=== PATIENT | female | born 1970 | race African-American/Black ===

== ENCOUNTER → 2017-06-25 | Day surgery (SDC) | payer OTHER ==
[2017-06-25 10:19] LABS: URINE APPEARANCE CLOUDY; URINE BILIRUBIN NEGATIVE (<2.0 mg/dL); URINE BLOOD 1+ (NEGATIVE); URINE COLOR YELLOW; URINE GLUCOSE (UA) NEGATIVE (NEGATIVE); URINE KETONE NEGATIVE (NEGATIVE); URINE NITRITE NEGATIVE (NEGATIVE); URINE PROTEIN NEGATIVE (NEGATIVE); URINE UROBILINOGEN NEGATIVE mg/dL (0.2-1.0)
[2017-06-25 10:23] LABS: URINE LEUK ESTERASE 3+ (NEGATIVE)
[2017-06-25 10:26] LABS: EPI CELLS MANY /HPF (FEW); URINE BACTERIA MANY /hpf (NONE SEEN); URINE HYALINE CAST 2 /lpf; URINE MUCUS RARE; YEAST FEW
[2017-06-25 10:28] LABS: EOS % 2.7 % (0-4.5); HEMATOCRIT 33.8 % (32.4-45.2); HEMOGLOBIN 10.9 GM/dL (10.7-15.3); LYMPH % 31.5 % (8-40); MCH 25.9 pg (25.7-33.7); MCHC 32.4 g/dl (32.0-36.0); MEAN CELL VOLUME 80.1 fl (80-96); MEAN PLT VOLUME 9.9 fl (7.5-11.1); MONO % 7.2 % (3.8-10.2); NEUT % 57.6 % (42.8-82.8); PLATELET COUNT 153 K/MM3 (134-434); RBC 4.22 M/mm3 (3.60-5.2); RDW 17.1 % (11.6-15.6); WHITE BLOOD COUNT 5.7 K/mm3 (4.0-10.0)
[2017-06-25 10:46] LABS: ALBUMIN 3.2 g/dl (3.4-5.0); MAGNESIUM 1.6 mg/dL (1.8-2.4)
[2017-06-25 11:08] LABS: ALBUMIN 3.1 g/dl (3.4-5.0); ANION GAP 5 (8-16); BLOOD UREA NITROGEN 10 mg/dL (7-18); CALCIUM 8.6 mg/dL (8.5-10.1); CHLORIDE 107 mmol/L (98-107); CO2 26 mmol/L (21-32); CREATININE 0.9 mg/dL (0.55-1.02); GLUCOSE,RANDOM 79 mg/dL (74-106); POTASSIUM 4.2 mmol/L (3.5-5.1); SGOT/AST 6 U/L (15-37); SGPT/ALT 7 U/L (12-78); SODIUM 138 mmol/L (136-145); URIC ACID 4.6 mg/dL (2.6-7.2)
[2017-06-25 11:18] LABS: ALK PHOS 65 U/L (45-117); BILIRUBIN,TOTAL 0.2 mg/dL (0.2-1.0); TOT PROT 7.2 g/dl (6.4-8.2)
[2017-06-25 11:43] LABS: ALK PHOS 68 U/L (45-117); BILIRUBIN,DIRECT < 0.2 mg/dL (0.0-0.2); BILIRUBIN,TOTAL 0.3 mg/dL (0.2-1.0); CHOLESTEROL 179 mg/dL (50-200); GLUCOSE,FASTING 81 mg/dL (70-105); SGOT/AST 10 U/L (15-37); SGPT/ALT 7 U/L (12-78); TOT PROT 7.5 g/dl (6.4-8.2); TRIGLYCERIDES 173 mg/dL (35-160)
[2017-06-25 12:30] LABS: HDL CHOLESTEROL 40 mg/dL (40-60); LDL CHOLESTEROL (ONLY SJRH) 108 mg/dL (5-100)
[2017-06-26 14:17] LABS: C-PEPTIDE 3.5 ng/mL (1.1-4.4)
--- NOTE | 2017-06-26 14:43 | PATH ---
Cytology Non-Gynecological Report Patient Name: RANCHO HANDY [facility]. Rec. #: [id number] /Age/Gender: 1970 (Age: 47) / F Account: [id number] Location: LABORATORY Taken: 06/25/2017 Received: 06/25/2017 Reported: 06/26/2017 Physicians: Wali Noble M.D. Specimen(s) Received LEFT THYROID FNA Clinical History Left Thyroid nodule, 3.65 X 3.01 x 1.46 cm Final Diagnosis THYROID, LEFT, FINE NEEDLE ASPIRATION: SATISFACTORY FOR EVALUATION. BETHESDA CLASS II: BENIGN. CYTOLOGIC FINDINGS ARE CONSISTENT WITH A BENIGN FOLLICULAR NODULE. SMALL FOLLICULAR CELLS, FEW MACROPHAGES, AND COLLOID PRESENT. Electronically Signed Ximena Lerma M.D. Gross Description Received are eight direct smears, four of which are air-dried and Diff-Quik stained, and four of which are alcohol fixed and Pap stained. Also received is 20 ml of bloody formalin from which one cellblock is prepared.
== END | disposition home or self-care (01) ==
LOC: JRADIR 09:14
PROVIDERS: ATTEND Internal Medicine Endocrinology, Diabetes & Metabolism
PROC: 0G9G3ZX Drainage of Left Thyroid Gland Lobe, Percutaneous Approach, Diagnostic (ICD-10-PCS; principal; 2017-06-25)
DX: E04.1 Nontoxic single thyroid nodule (principal)
CPT/HCPCS: 36415; 76942; 80053; 80061; 80076; 81003; 81015; 82306; 82607; 82652; 82947; 83036; 83540; 83721; 83735; 84436; 84439; 84443; 84481; 84550; 84630; 84681; 85025; 88173; 88305-TC

== ENCOUNTER 2018-01-16 13:24 | Observation (INO) | payer OTHER ==
--- NOTE | 2018-01-16 14:41 | PDOC ---
History of Present Illness - General Stated Complaint: PALPITATIONS Time Seen by Provider: 01/16/18 13:56 History Source: Patient Exam Limitations: No Limitations - History of Present Illness Initial Comments: 01/16/18 15:26 Patient is a 47-year-old female with past medical history of systolic heart failure, hypothyroidism, irregular heartbeats, hyperlipidemia, non-insulin- dependent diabetes, presents to the emergency department today for exertional chest pain. Patient states she was walking today when she suddenly felt sharp chest pains in the left side. Patient states that the pain radiated down her left arm. She also admits to palpitations and shortness of breath. She states that when she stopped walking her symptoms improved and the pain resolved. Patient also endorses edema, however she states that she usually has peripheral edema and is taking Lasix at this time. She went to see Dr. Mayes and given her symptoms, he wanted her to come to the emergency department for admission for further cardiac workup. Denies fevers, chills, nausea, vomiting, numbness and tingling to the extremities, weakness to the extremities, shortness of breath at rest. Past History - Travel Traveled outside of the country in the last 30 days: No Close contact w/someone who was outside of country & ill: No - Past Medical History Allergies/Adverse Reactions: Allergies Allergy/AdvReac Type Severity Reaction Status Date / Time lamotrigine [From Lamictal] Allergy Verified 01/16/18 13:34 Home Medications: Ambulatory Orders Aspirin 81 mg PO DAILY 01/16/18 Atorvastatin Ca [Lipitor] 10 mg PO HS 01/16/18 Docusate Sodium [Colace] 100 mg PO DAILY 01/16/18 Ezetimibe [Zetia] 10 mg PO DAILY 01/16/18 Furosemide 40 mg PO ASDIR 01/16/18 Levothyroxine [Synthroid -] 150 mcg PO DAILY 01/16/18 Losartan Potassium 50 mg PO DAILY 01/16/18 Mirabegron [Myrbetriq] 25 mg PO DAILY 01/16/18 Multivitamin [Daily Multiple Vitamin] 1 each PO DAILY 01/16/18 Omeprazole 20 mg PO DAILY 01/16/18 Oxcarbazepine [Trileptal] 300 mg PO BID 01/16/18 Sitagliptin Phos/Metformin HCl [Janumet 50-500 mg Tablet] 1 each PO DAILY Trulicity 01/16/18 Zonisamide [Zonegran] 100 mg PO BID 01/16/18 levETIRAcetam [Keppra -] 750 mg PO BID 01/16/18 Asthma: Yes COPD: No CHF: Yes Diabetes: Yes HTN: Yes Seizures: Yes Thyroid Disease: Yes (hypo) Other medical history: nodules in throat - Surgical History Abdominal Surgery: Yes (hernia repair, kidney stone, gastric sleeve) - Suicide/Smoking/Psychosocial Hx Smoking History: Never smoked Information on smoking cessation initiated: No Hx Alcohol Use: No Drug/Substance Use Hx: No Substance Use Type: None Review of Systems - Review of Systems Able to Perform ROS?: Yes Comments:: 01/16/18 14:43 CONSTITUTIONAL: Absent: fever, chills, diaphoresis, generalized weakness, malaise, loss of appetite HEENT: Absent: rhinorrhea, nasal congestion, throat pain, throat swelling, difficulty swallowing, mouth swelling, ear pain, eye pain, visual Changes CARDIOVASCULAR: Present: chest pain, worse with exertion, palpitations, peripheral edema Absent : loss of consciousness, irregular heart rate RESPIRATORY: Absent: cough, shortness of breath, dyspnea with exertion, orthopnea, wheezing, stridor, hemoptysis GASTROINTESTINAL: Absent: abdominal pain, abdominal distension, nausea, vomiting, diarrhea, constipation, melena, hematochezia GENITOURINARY: Absent: dysuria, frequency, urgency, hesitancy, hematuria, flank pain, genital pain MUSCULOSKELETAL: Absent: myalgia, arthralgia, joint swelling SKIN: Absent: rash, itching, pallor HEMATOLOGIC/IMMUNOLOGIC: Absent: easy bleeding, easy bruising, lymphadenopathy, frequent infections ENDOCRINE: Absent: unexplained weight gain, unexplained weight loss, heat intolerance, cold intolerance NEUROLOGIC: Absent: headache, focal weakness or paresthesias, dizziness, unsteady gait, seizure, mental status changes, bladder or bowel incontinence PSYCHIATRIC: Absent: anxiety, depression, suicidal or homicidal ideation, hallucinations. Is the patient limited Croatian proficient: No *Physical Exam - Vital Signs Last Vital Signs Temp Pulse Resp BP Pulse Ox 98 F 75 19 123/57 L 98 01/16/18 13:27 01/16/18 13:27 01/16/18 13:27 01/16/18 13:27 01/16/18 13:27 - Physical Exam Comments: 01/16/18 14:43 GENERAL: Well developed, well nourished. Awake and alert. No acute distress. HEENT: Normocephalic, atraumatic. PERRLA, EOMI. No conjunctival pallor. Sclera are non- icteric. Moist mucous membranes. Oropharynx is clear. NECK: Supple. Full ROM. No JVD. Carotid pulses 2+ and symmetric, without bruits. No thyromegaly. No lymphadenopathy. CARDIOVASCULAR: Regular rate and rhythm. No murmurs, rubs, or gallops. Distal pulses are 2+ and symmetric. PULMONARY: No evidence of respiratory distress. Course lung sounds at the bases b/l. No wheezing, rales or rhonchi. ABDOMINAL: Soft. Non-tender. Non-distended. No rebound or guarding. No organomegaly. Normoactive bowel sounds. MUSCULOSKELETAL Normal range of motion at all joints. No bony deformities or tenderness. No CVA tenderness. EXTREMITIES: 4+ pitting edema b/l. No cyanosis. No clubbing. No calf tenderness. SKIN: Warm and dry. Normal capillary refill. No rashes. No jaundice. NEUROLOGICAL: Alert, awake, appropriate. Cranial nerves 2-12 intact. No deficits to light touch and temperature in face, upper extremities and lower extremities. No motor deficits in the in face, upper extremities and lower extremities. Normoreflexic in the upper and lower extremities. Normal speech. Toes are down- going bilaterally. Gait is normal without ataxia. PSYCHIATRIC: Cooperative. Good eye contact. Appropriate mood and affect. Heart Score/ECG Review - History History: Moderately suspicious - Electrocardiogram EKG: Normal - Age Age: 45-65 - Risk Factors Risk Factors Heart Score: Yes Hx Hypercholesterolemia, Yes Hx Diabetes, Yes Hx Obesity Based on the list above the patient has:: >/=3 risk factors or Hx atherosclerotic disease - Troponin Troponin: </= normal limit - Score Heart Score - Total: 4 - ECG Intrepretation Rhythm: PVC(s) - [place]: Normal - ST and T Flattened T Waves: No Prolonged Q-T Interval: No - ECG Impressions Normal ECG: Yes Comment:: 01/16/18 18:35 Otherwise normal EKG with frequent PVC's ED Treatment Course - LABORATORY CBC & Chemistry Diagram: 01/16/18 15:11 01/16/18 15:11 Medical Decision Making - Medical Decision Making 01/16/18 15:01 Patient is a 47-year-old female with past medical history of systolic heart failure, hypothyroidism, irregular heartbeats, hyperlipidemia, non-insulin- dependent diabetes, presents to the emergency department today for exertional chest pain. On exam patient with 4+ pitting pedal edema. Heart exam with regular rate and rhythm, no murmurs rubs or gallops heard. Lungs are clear to auscultation bilaterally. Patient states that she currently has no symptoms at this time as her symptoms only come on when she is walking. Unstable angina versus ACS versus CHF exacerbation Labs, EKG, chest x-ray ordered at this time. Reevaluate 01/16/18 16:38 Lab work at this time shows a negative first troponin, BNP of 100 No leukocytosis or electrolyte shifts Chest x-ray is negative for infiltrates, effusions Most likley unstable angina Patient had a cardiac stress test done in 2016 in our facility which showed an EF of 25%. Will page Dr. Rees's service for [place] 01/16/18 16:[address] Rees placed 01/16/18 17:06 No call back, call placed to [place] 01/16/18 17:[address] [facility] Agrees to tele obs given reported symptoms and old Stress test showing 25% EF. *DC/Admit/Observation/Transfer Diagnosis at time of Disposition: Chest pain - Discharge Dispostion Condition at time of disposition: Stable Decision to Admit order: Yes - Referrals Referrals: Dustin Mayes MD [Primary Care Provider] - - Patient Instructions - Post Discharge Activity
[2018-01-16 15:25] LABS: HEMOGLOBIN 10.4 GM/dL (10.7-15.3); LYMPH % 25.6 % (8-40); MCH 26.8 pg (25.7-33.7); MCHC 32.7 g/dl (32.0-36.0); MEAN PLT VOLUME 9.2 fl (7.5-11.1); MONO % 7.6 % (3.8-10.2); NEUT % 63.8 % (42.8-82.8); PLATELET COUNT 147 K/MM3 (134-434); RDW 16.1 % (11.6-15.6); WHITE BLOOD COUNT 6.3 K/mm3 (4.0-10.0)
[2018-01-16 15:27] LABS: INR 0.93 (0.83-1.09)
[2018-01-16 16:02] LABS: ALBUMIN 3.2 g/dl (3.4-5.0); ALK PHOS 76 U/L (45-117); ANION GAP 11 MMOL/L (8-16); BILIRUBIN,TOTAL 0.2 mg/dL (0.2-1); BLOOD UREA NITROGEN 9 mg/dL (7-18); CALCIUM 8.2 mg/dL (8.5-10.1); CHLORIDE 105 mmol/L (98-107); CO2 24 mmol/L (21-32); CREATININE 0.9 mg/dL (0.55-1.3); GLUCOSE,RANDOM 80 mg/dL (74-106); MAGNESIUM 1.7 mg/dL (1.8-2.4); N-TERMINAL BNP 102.1 pg/ml (5-125); POTASSIUM 4.1 mmol/L (3.5-5.1); SGOT/AST 10 U/L (15-37); SGPT/ALT 12 U/L (13-61); SODIUM 139 mmol/L (136-145); TOT PROT 7.2 g/dl (6.4-8.2)
[2018-01-16 16:48] LABS: URINE APPEARANCE SLCLOUDY; URINE BILIRUBIN NEGATIVE (<2.0 mg/dL); URINE COLOR YELLOW; URINE GLUCOSE (UA) NEGATIVE (NEGATIVE); URINE KETONE NEGATIVE (NEGATIVE); URINE LEUK ESTERASE 2+ (NEGATIVE); URINE NITRITE NEGATIVE (NEGATIVE); URINE PROTEIN NEGATIVE (NEGATIVE)
[2018-01-16 17:13] LABS: EPI CELLS MANY /HPF (FEW); URINE BACTERIA RARE /hpf (NONE SEEN); URINE HYALINE CAST 2 /lpf
--- NOTE | 2018-01-16 17:36 | HP ---
Admitting History and Physical - Primary Care Physician PCP: Dustin Mayes - Admission Chief Complaint: Chest pain and palpitation History of Present Illness: 47 yrs old F morbidly obese H/O HTN, T2DM, frequent PVCs, non Ischemic Cardiomyopathy , sHF last EF 25-30 12/24, -ve stress dobutamin ECHO (scanned report) seizure disorders Petit mal and Grand mal last was 1 month ago (F/U in [place]) , patient has no F/U with Cardiology never evaluated for AICD also H/O Well controlled T@DM and Dyslipedemia, chronic LE swelling as per patient off and on palpitation but never syncope or dizziness, base line ET 1-2 blocks denies any PND or orthopnea, toady patient was walking uphill developed palpitation and chest discomfort so visited PMD office so came to Ed for evaluation, on arrival hemodynamically stable, CBc, CMP< Pro BNP, Trop I normal , EKG no acute St T changes occasional PVCs, at the time of examination hemodynamically stable denies anuy complaints. 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 Cardiovascular: Yes: CHF, HTN, Hyperlipdemia Endocrine: Yes: Diabetes Mellitus - Past Surgical History Past Surgical History: Yes: Hernia Repair, Tonsillectomy, Tubal Ligation - Smoking History Smoking history: Never smoked - Alcohol/Substance Use Hx Alcohol Use: No - Social History ADL: Independent Home Medications - Allergies Allergies/Adverse Reactions: Allergies Allergy/AdvReac Type Severity Reaction Status Date / Time lamotrigine [From Lamictal] Allergy Verified 01/16/18 13:34 - Home Medications Home Medications: Ambulatory Orders Aspirin 81 mg PO DAILY 01/16/18 Atorvastatin Ca [Lipitor] 10 mg PO HS 01/16/18 Docusate Sodium [Colace] 100 mg PO DAILY 01/16/18 Ezetimibe [Zetia] 10 mg PO DAILY 01/16/18 Furosemide 40 mg PO ASDIR 01/16/18 Levothyroxine [Synthroid -] 150 mcg PO DAILY 01/16/18 Losartan Potassium 50 mg PO DAILY 01/16/18 Mirabegron [Myrbetriq] 25 mg PO DAILY 01/16/18 Multivitamin [Daily Multiple Vitamin] 1 each PO DAILY 01/16/18 Omeprazole 20 mg PO DAILY 01/16/18 Oxcarbazepine [Trileptal] 300 mg PO BID 01/16/18 Sitagliptin Phos/Metformin HCl [Janumet 50-500 mg Tablet] 1 each PO DAILY Trulicity 01/16/18 Zonisamide [Zonegran] 100 mg PO BID 01/16/18 levETIRAcetam [Keppra -] 750 mg PO BID 01/16/18 Family Disease History - Family Disease History Family History: Unremarkable Review of Systems - Review of Systems Constitutional: denies: Chills, Diaphoresis, Fever Eyes: denies: Blind Spots, Blurred Vision HENT: denies: Difficult Swallowing, Ear Discharge Neck: denies: Decreased ROM, Lumps, Pain on Movement Cardiovascular: reports: Chest Pain, Edema, Palpitations, Shortness of Breath Respiratory: reports: Exercise Intolerance, Orthopnea. denies: Cough, Hemoptysis Gastrointestinal: reports: Abdominal Pain, Diarrhea. denies: Constipation Genitourinary: reports: Burning, Discharge, Dysuria Musculoskeletal: reports: Back Pain, Crepitus, Decreased ROM, Extremity Pain Neurological: denies: Change in LOC, Change in Speech, Confusion Pain Intensity: 0 Physical Examination Vital Signs: Vital Signs Temperature 98 F 01/16/18 13:27 Pulse Rate 75 01/16/18 13:27 Respiratory Rate 19 01/16/18 13:27 Blood Pressure 123/57 L 01/16/18 13:27 O2 Sat by Pulse Oximetry (%) 98 01/16/18 13:27 Constitutional: Yes: No Distress HENT: Yes: Normocephalic, Other (m moist no aanemia) Cardiovascular: Yes: Regular Rate and Rhythm, S1, S2. No: Bruit, JVD, Gallop, Murmur Respiratory: Yes: Regular, CTA Bilaterally Gastrointestinal: Yes: Normal Bowel Sounds, Soft Edema: Yes Edema: RUE: 1+, LLE: 1+ Peripheral Pulses: Left Doralis Pedis: 1+, Right Dorsalis Pedis: 1+ Neurological: Yes: Alert, Oriented, Cran Nerves II-XII Intact ...Motor Strength: WNL, LUE, LLE, RUE, RLE Labs: CBC, BMP 01/16/18 15:11 01/16/18 15:11 CBCD WBC 6.3 K/mm3 (4.0-10.0) 01/16/18 15:11 RBC 3.90 M/mm3 (3.60-5.2) 01/16/18 15:11 Hgb 10.4 GM/dL (10.7-15.3) L 01/16/18 15:11 Hct 32.0 % (32.4-45.2) L 01/16/18 15:11 MCV 82.0 fl (80-96) 01/16/18 15:11 MCHC 32.7 g/dl (32.0-36.0) 01/16/18 15:11 RDW 16.1 % (11.6-15.6) H 01/16/18 15:11 Plt Count 147 K/MM3 (134-434) 01/16/18 15:11 MPV 9.2 fl (7.5-11.1) 01/16/18 15:11 CMP Sodium 139 mmol/L (136-145) 01/16/18 15:11 Potassium 4.1 mmol/L (3.5-5.1) 01/16/18 15:11 Chloride 105 mmol/L (98-107) 01/16/18 15:11 Carbon Dioxide 24 mmol/L (21-32) 01/16/18 15:11 Anion Gap 11 MMOL/L (8-16) 01/16/18 15:11 BUN 9 mg/dL (7-18) 01/16/18 15:11 Creatinine 0.9 mg/dL (0.55-1.3) 01/16/18 15:11 Creat Clearance w eGFR > 60 (>60) 01/16/18 15:11 Calcium 8.2 mg/dL (8.5-10.1) L 01/16/18 15:11 Total Bilirubin 0.2 mg/dL (0.2-1) 01/16/18 15:11 AST 10 U/L (15-37) L 01/16/18 15:11 ALT 12 U/L (13-61) L 01/16/18 15:11 Alkaline Phosphatase 76 U/L (45-117) 01/16/18 15:11 Total Protein 7.2 g/dl (6.4-8.2) 01/16/18 15:11 Albumin 3.2 g/dl (3.4-5.0) L 01/16/18 15:11 Imaging - Results Chest X-ray: Report Reviewed (Normal) EKG: Report Reviewed (HR76 nsr pr160, qrs 106 qtc 436 axis 5 frequent monofocal PVCs) Problem List - Problems (1) Chest pain Assessment/Plan: present with chest pain with exertion associated with palpittaion, EKG and Cardio bimarkers are unremarkable last Stress ECHO (Dobutamine 12/24) was reported negative for ischemia, will cont ASa, lipid lowering agent, Lipid panel TSH HBA!C level, Cardiology consult serial CE and ECHO resume home meds including B Blockers. At present asymptomatic Code(s): R07.9 - CHEST PAIN, UNSPECIFIED (2) Non-ischemic cardiomyopathy Assessment/Plan: Last ECHO in 12/24 low EF 25-30 no ischemic changes most likely non ischemic cardiomyopathy at present BNP is normal CXR no congestive changes f/ u ECHo and Cardiology recommendation. Code(s): I42.8 - OTHER CARDIOMYOPATHIES (3) Acute systolic heart failure, ACC/AHA stage C Assessment/Plan: last ECHO EF 25-30% F/U rpt ECHO at present BNP normal no pulmonary congestion , compensated cont Lasix, add low dose Coreg and Arbs Code(s): I50.21 - ACUTE SYSTOLIC (CONGESTIVE) HEART FAILURE (4) T2DM (type 2 diabetes mellitus) Assessment/Plan: Dibetic Diuet cont Januvia F/U HBAIC cont correction dose insulin. Code(s): E11.9 - TYPE 2 DIABETES MELLITUS WITHOUT COMPLICATIONS (5) HTN (hypertension) Assessment/Plan: Well controlled cont all home meds Code(s): I10 - ESSENTIAL (PRIMARY) HYPERTENSION (6) PVC (premature ventricular contraction) Assessment/Plan: Chronic noted in last ECHO if frequent needs 24 hrs holters to evaluate PVC burden a possible cause for tachycardia induced cardiomyopathy. Code(s): I49.3 - VENTRICULAR PREMATURE DEPOLARIZATION (7) Seizure Assessment/Plan: as per patient she has both petit mal and grand mal seizures last episode was 1 month ago cont home meds and observe Code(s): R56.9 - UNSPECIFIED CONVULSIONS (8) Morbid obesity with BMI of 45.0-49.9, adult Assessment/Plan: Nutrional evaluation as out patient. Code(s): E66.01 - MORBID (SEVERE) OBESITY DUE TO EXCESS CALORIES; Z68.42 - BODY MASS INDEX (BMI) 45.0-49.9, ADULT (9) Hyperchloremia Assessment/Plan: cont statin Code(s): E87.8 - OTH DISORDERS OF ELECTROLYTE AND FLUID BALANCE, NEC (10) Hypothyroid Assessment/Plan: Cont Levothyroxine F./U TSH and ipid Panel Code(s): E03.9 - HYPOTHYROIDISM, UNSPECIFIED
[2018-01-16 20:28] VITALS: BMI 47.4
[2018-01-16 21:31] LABS: CHOLESTEROL 180 mg/dL (50-200); HDL CHOLESTEROL 39 mg/dL (40-60); TRIGLYCERIDES 159 mg/dL (0-150)
[2018-01-16] MEDS ORDERED: levETIRAcetam 500 MG TABLET (FP) PO ONE (21:44)
[2018-01-16] MEDS ORDERED: levETIRAcetam 250 MG TABLET (FP) PO ONE (21:44)
[2018-01-16] MEDS ORDERED: ATORVASTATIN CA 10 MG TABLET (FP) PO SCH (22:00)
[2018-01-16] MEDS ORDERED: levETIRAcetam 500 MG TABLET (FP) PO SCH (22:00)
[2018-01-16] MEDS: CARVEDILOL 3.125 MG TABLET (FP) PO SCH (22:09)
[2018-01-16] MEDS: OXcarbazepine 300 MG TABLET (UD) PO SCH (22:11)
[2018-01-16] MEDS: ZONISAMIDE 100 MG CAPSULE PO SCH (22:11)
[2018-01-16] MEDS: PANTOPRAZOLE 20 MG TABLET (FP) PO SCH (22:18)
[2018-01-17] MEDS: sitaGLIPtin PHOSPHATE 50 MG TABLET PO SCH ×2 (06:33→06:35)
[2018-01-17] MEDS ORDERED: LEVOTHYROXINE NA 150 MCG TABLET PO SCH (07:00)
[2018-01-17] MEDS ORDERED: metFORMIN HCL 500 MG TABLET (FP) PO SCH (07:00)
[2018-01-17 07:30] LABS: BASO % 0.7 % (0-2.0); EOS % 2.4 % (0-4.5); HEMATOCRIT 31.5 % (32.4-45.2); LYMPH % 32.4 % (8-40); MCHC 31.8 g/dl (32.0-36.0); MEAN CELL VOLUME 81.9 fl (80-96); MEAN PLT VOLUME 9.4 fl (7.5-11.1); MONO % 9.1 % (3.8-10.2); NEUT % 55.4 % (42.8-82.8); PLATELET COUNT 144 K/MM3 (134-434); RBC 3.84 M/mm3 (3.60-5.2); RDW 16.3 % (11.6-15.6); WHITE BLOOD COUNT 5.1 K/mm3 (4.0-10.0)
--- NOTE | 2018-01-17 07:44 | EKG ---
Test Reason : Blood Pressure : / mmHG Vent. Rate : 076 BPM Atrial Rate : 076 BPM P-R Int : 160 ms QRS Dur : 106 ms QT Int : 388 ms P-R-T Axes : 067 005 051 degrees QTc Int : 436 ms SINUS RHYTHM WITH FREQUENT PREMATURE VENTRICULAR COMPLEXES NO PREVIOUS ECGS AVAILABLE Confirmed by CAROLYN STANFORD MD ([id number]) on 01/17/2018 7:44:25 AM Referred By: Confirmed By:CAROLYN STANFORD MD
[2018-01-17 08:45] LABS: ALK PHOS 71 U/L (45-117); ANION GAP 9 MMOL/L (8-16); BILIRUBIN,TOTAL 0.3 mg/dL (0.2-1); BLOOD UREA NITROGEN 7 mg/dL (7-18); CALCIUM 8.3 mg/dL (8.5-10.1); CHLORIDE 106 mmol/L (98-107); CO2 26 mmol/L (21-32); CREATININE 0.8 mg/dL (0.55-1.3); GLUCOSE,RANDOM 82 mg/dL (74-106); POTASSIUM 4.4 mmol/L (3.5-5.1); SGOT/AST 11 U/L (15-37); SGPT/ALT 10 U/L (13-61); SODIUM 141 mmol/L (136-145)
[2018-01-17] MEDS ORDERED: levETIRAcetam 500 MG TABLET (FP) PO ONE (08:52)
[2018-01-17] MEDS ORDERED: levETIRAcetam 250 MG TABLET (FP) PO ONE (08:52)
[2018-01-17] MEDS: PANTOPRAZOLE 20 MG TABLET (FP) PO SCH (09:29)
[2018-01-17] MEDS: CARVEDILOL 3.125 MG TABLET (FP) PO SCH (09:29)
[2018-01-17] MEDS: OXcarbazepine 300 MG TABLET (UD) PO SCH (09:30)
[2018-01-17] MEDS ORDERED: ASPIRIN 81 MG CHEWABLE TABLETS PO SCH (10:00)
[2018-01-17] MEDS ORDERED: FUROSEMIDE 40 MG TABLET (FP) PO SCH (10:00)
[2018-01-17] MEDS ORDERED: DOCUSATE SODIUM 100 MG CAPSULE (FP) PO SCH (10:00)
[2018-01-17] MEDS ORDERED: PATIENT'S OWN MEDICATION (NON-FORMULARY) (Sitagliptin Phos/Metformin Hcl [Janumet 50-500 M PO SCH (10:00)
[2018-01-17] MEDS ORDERED: MULTIVITAMINS (DAILY MVI) TABLET (FP) PO SCH (10:00)
[2018-01-17] MEDS ORDERED: PATIENT'S OWN MEDICATION (NON-FORMULARY) (Mirabegron [Myrbetriq] 25 MG) PO SCH (10:00)
[2018-01-17] MEDS ORDERED: LOSARTAN POTASSIUM 50 MG TABLET (FP) PO SCH (10:00)
[2018-01-17] MEDS ORDERED: EZETIMIBE 10 MG TABLET (FP) PO SCH (10:00)
--- NOTE | 2018-01-17 10:03 | CON.CARD ---
Consult Consult Specialty:: Cardiology Referred by:: Emergency Medicine Reason for Consultation:: Cardiomyopathy - History of Present Illness Chief Complaint: Sharp chest pain, palpitations and BHAKTA History of Present Illness: 47 yrs old F morbidly obese H/O HTN cardiomyopathy, T2DM, frequent PVCs, non Ischemic Cardiomyopathy LVEF 25-30 12/24, -ve stress dobutamin ECHO (scanned report), hyperlipidemia, seizure disorders Petit mal and Grand mal, chronic LE swelling, presents for sharp chest pain, palpitation and dyspnea on exertion while climbing incline, referred for evaluation, exertional symptoms since improved. She denies near or true syncope, orthopnea, PND, worsening LE edema. She was previously morbidly obese >500 lbs and reports significant weight loss with improvement in Ha1c and lipid levels. 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 Cardio/Vascular: Yes: CHF, HTN, Hyperlipdemia ...: No Endocrine: Yes: Diabetes Mellitus - Past Surgical History Past Surgical History: Yes: Hernia Repair, Tonsillectomy, Tubal Ligation - Alcohol/Substance Use Hx Alcohol Use: No - Smoking History Smoking history: Never smoked Have you smoked in the past 12 months: No - Social History ADL: Independent Home Medications - Allergies Allergies/Adverse Reactions: Allergies Allergy/AdvReac Type Severity Reaction Status Date / Time lamotrigine [From Lamictal] Allergy Verified 01/16/18 13:34 - Home Medications Home Medications: Ambulatory Orders Aspirin 81 mg PO DAILY 01/16/18 Atorvastatin Ca [Lipitor] 10 mg PO HS 01/16/18 Docusate Sodium [Colace] 100 mg PO DAILY 01/16/18 Ezetimibe [Zetia] 10 mg PO DAILY 01/16/18 Furosemide 40 mg PO ASDIR 01/16/18 Levothyroxine [Synthroid -] 150 mcg PO DAILY 01/16/18 Losartan Potassium 50 mg PO DAILY 01/16/18 Mirabegron [Myrbetriq] 25 mg PO DAILY 01/16/18 Multivitamin [Daily Multiple Vitamin] 1 each PO DAILY 01/16/18 Omeprazole 20 mg PO DAILY 01/16/18 Oxcarbazepine [Trileptal] 300 mg PO BID 01/16/18 Sitagliptin Phos/Metformin HCl [Janumet 50-500 mg Tablet] 1 each PO DAILY Trulicity 01/16/18 Zonisamide [Zonegran] 100 mg PO BID 01/16/18 levETIRAcetam [Keppra -] 750 mg PO BID 01/16/18 Review of Systems - Review of Systems Cardiovascular: reports: Chest Pain, Palpitations Respiratory: reports: Exercise Intolerance, SOB on Exertion Vital Signs: Vital Signs Temperature 97.6 F 01/17/18 05:44 Pulse Rate 78 01/17/18 05:44 Respiratory Rate 20 01/17/18 05:44 Blood Pressure 123/71 01/17/18 05:44 O2 Sat by Pulse Oximetry (%) 100 01/16/18 20:36 Constitutional: Yes: No Distress, Calm Neck: Yes: Supple Respiratory: Yes: Regular, Diminished, On Nasal O2 Gastrointestinal: Yes: Normal Bowel Sounds, Soft, Abdomen, Obese Cardiovascular: Yes: Regular Rate and Rhythm, Other (with ectopics) JVD: No Carotid Bruit: No Heart Sounds: Yes: S1, S2 Murmur: Yes: Systolic Murmur, Grade 1 Edema: Yes Edema: LLE: Trace, RLE: Trace - Other Data Labs, Other Data: CBC, BMP 01/17/18 06:15 01/17/18 06:15 INR, PTT INR 0.93 (0.83-1.09) 01/16/18 15:11 Troponin, BNP 01/16/18 01/16/18 01/17/18 15:10 15:11 00:05 Troponin I Cancelled < 0.02 < 0.01 B-Natriuretic Peptide 102.1 Troponin, BNP 01/16/18 01/16/18 01/17/18 15:10 15:11 00:05 Troponin I Cancelled < 0.02 < 0.01 B-Natriuretic Peptide 102.1 NSR @ 76 frequent PVC Echo: Report Reviewed Ejection Fraction %: LVEF < 40 % (01/17/2018 Echo: Moderate-severe decreased LVEF 40%, possible noncompaction) Imaging - Results Chest X-ray: Report Reviewed (NAD) Problem List - Problems (1) Acute systolic heart failure, ACC/AHA stage C Code(s): I50.21 - ACUTE SYSTOLIC (CONGESTIVE) HEART FAILURE (2) Chest pain Code(s): R07.9 - CHEST PAIN, UNSPECIFIED Qualifiers: Chest pain type: precordial pain Qualified Code(s): R07.2 - Precordial pain (3) HTN (hypertension) Code(s): I10 - ESSENTIAL (PRIMARY) HYPERTENSION Qualifiers: Hypertension type: essential hypertension Qualified Code(s): I10 - Essential (primary) hypertension (4) Hypothyroid Code(s): E03.9 - HYPOTHYROIDISM, UNSPECIFIED Qualifiers: Hypothyroidism type: unspecified Qualified Code(s): E03.9 - Hypothyroidism , unspecified (5) Morbid obesity with BMI of 45.0-49.9, adult Code(s): E66.01 - MORBID (SEVERE) OBESITY DUE TO EXCESS CALORIES; Z68.42 - BODY MASS INDEX (BMI) 45.0-49.9, ADULT (6) Non-ischemic cardiomyopathy Code(s): I42.8 - OTHER CARDIOMYOPATHIES (7) PVC (premature ventricular contraction) Code(s): I49.3 - VENTRICULAR PREMATURE DEPOLARIZATION (8) T2DM (type 2 diabetes mellitus) Code(s): E11.9 - TYPE 2 DIABETES MELLITUS WITHOUT COMPLICATIONS Qualifiers: Diabetes mellitus termite inspector insulin use: without termite inspector use (9) Palpitations Code(s): R00.2 - PALPITATIONS Assessment/Plan Echocardiogram: 01/17/2018 Moderate-severe LV fxn LVEF 40%, 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 Chest pain, BHAKTA referable to chronic systolic heart failure 2. Palpitations referable to PVC 3. 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 Type 2 DM 5. HTN/HCVD 6. Seizure d/o 7. Morbid obesity, previous OSAS/OHS 8. Hyperlipidemia not at goal control 9. Hypothyroidism P:1. Ruled out for [place] 2. Continue ASA 81 qd, increase Lipitor 20 qhs, Zetia 10 qd, losartan 50 qd, increase Toprol XL 50 qd 3. Will change Lasix 40 qd to Aldactone 25 qd as outpatient with check renal fxn and K 4. Consider Jardiance 10 qd per endocrinology as outpatient to decrease cardiovascular events 5. Patient may be d/dorie with f/u in office , consider cardiac MRI to evaluate for noncompaction cardiomyopathy
--- NOTE | 2018-01-17 10:07 | ECHO ---
Name: RANCHO HANDY Exam:Adult Echocardiogram Study Date: 01/17/2018 08:11 AM Age: 47 yrs Reason For Study: SYNCOPE Height: 67 in Weight: 312 lb BSA: 2.4 m2 MMode/2D Measurements & Calculations IVSd: 0.85 cm Ao root diam: 3.2 cm LVIDd: 6.3 cm LA dimension: 4.2 cm LVIDs: 4.9 cm ACS: 1.7 cm LVPWd: 0.95 cm IVSs: 0.97 cm LVPWs: 1.4 cm EDV(Teich): 202.0 ml ESV(Teich): 111.5 ml Doppler Measurements & Calculations MV E max jaxon: 117.5 cm/sec Ao V2 max: 156.9 cm/sec MV A max jaxon: 63.2 cm/sec Ao max P.8 mmHg MV E/A: 1.9 Ao V2 mean: 111.9 cm/sec Ao mean P.7 mmHg Ao V2 VTI: 32.7 cm MR max jaxon: 444.2 cm/sec TR max jaxon: 220.6 cm/sec MR max P.0 mmHg TR max P.5 mmHg RVSP(TR): 29.5 mmHg Med Peak E' Jaxon: 7.0 cm/sec RAP systole: 10.0 mmHg Med E/e': 16.7 Lat Peak E' Jaxon: 11.6 cm/sec Lat E/e': 10.1 Left Ventricle In some views, the left ventricle appears hypertrabeculated raising the possibility of non-compaction . Suggest cardiac MRI as outpatient. The left ventricle is moderately dilated. Left ventricular systolic functi on is moderate to severely reduced. Ejection Fraction = 40%. There is moderate to severe global hypokinesis of the left ventricle. Right Ventricle The right ventricle is normal in size and function. Atria The left atrium is mildly dilated. Mitral Valve The mitral valve is normal in structure and function. There is no mitral valve stenosis. There is mil d mitral regurgitation. Tricuspid Valve The tricuspid valve is normal in structure and function. There is mild tricuspid regurgitation. Aortic Valve The aortic valve opens well. No hemodynamically significant valvular aortic stenosis. No aortic regur gitation is present. Pulmonic Valve The pulmonic valve is not well seen, but is grossly normal. There is no pulmonic valvular stenosis. T here is no pulmonic valvular regurgitation. Great Vessels The aortic root is normal size. Pericardium/Pleura There is no pericardial effusion. Interpretation Summary There is moderate to severe global hypokinesis of the left ventricle. Left ventricular systolic function is moderate to severely reduced. Ejection Fraction = 40%. In some views, the left ventricle appears hypertrabeculated raising the possibility of non-compaction . Suggest cardiac MRI as outpatient. The left atrium is mildly dilated. There is mild mitral regurgitation. MD Rick Wheat 01/17/2018 10:06 AM
--- NOTE | 2018-01-17 11:29 | PN ---
Progress Note, Physician Chief Complaint: chest pain SOB History of Present Illness: NAD Seen by cardiology labs unremarkable Echo LVEF-40%, moderate-severe left ventricle hypokinesis, LV systolic fxn mod- sev reduced On tele furosemide discontinued Metoprolol increased to 50 mg po daily Spironolactone 25 mg po daily added - Current Medication List Current Medications: Active Medications Aspirin (Asa -) 81 mg PO DAILY [facility] Last Admin: 01/17/18 09:29 Dose: 81 mg Atorvastatin Calcium (Lipitor -) 10 mg PO HS [facility] Last Admin: 01/16/18 22:10 Dose: Not Given Carvedilol (Coreg -) 3.125 mg PO BID [facility] Last Admin: 01/17/18 09:29 Dose: 3.125 mg Docusate Sodium (Colace -) 100 mg PO DAILY [facility] Last Admin: 01/17/18 09:30 Dose: Not Given Ezetimibe (Zetia -) 10 mg PO DAILY [facility] Last Admin: 01/17/18 09:29 Dose: 10 mg Furosemide (Lasix -) 40 mg PO DAILY [facility] Last Admin: 01/17/18 09:30 Dose: Not Given Levetiracetam 250 mg/ (Levetiracetam 500 mg) 750 mg PO BID [facility] Last Admin: 01/17/18 09:29 Dose: 750 mg Levothyroxine Sodium (Synthroid -) 150 mcg PO DAILY@0700 [facility] Last Admin: 01/17/18 06:33 Dose: 150 mcg Losartan Potassium (Cozaar -) 50 mg PO DAILY [facility] Last Admin: 01/17/18 09:30 Dose: 50 mg Multivitamins/Minerals/Vitamin C (Tab-A-Vit -) 1 tab PO DAILY [facility] Last Admin: 01/17/18 09:29 Dose: 1 tab Non-Formulary Medication (Mirabegron [Myrbetriq]) 25 mg PO DAILY [facility] Oxcarbazepine (Trileptal -) 300 mg PO BID [facility] Last Admin: 01/17/18 09:30 Dose: Not Given Pantoprazole Sodium (Protonix -) 20 mg PO DAILY [facility] Last Admin: 01/17/18 09:29 Dose: 20 mg Sitagliptin Phosphate (Januvia -) 50 mg PO DAILY@0700 [facility] Last Admin: 01/17/18 06:35 Dose: Not Given Zonisamide (Zonegran -) 100 mg PO BID [facility] Last Admin: 01/16/18 22:11 Dose: 100 mg - Objective Vital Signs: Vital Signs Temperature 97.6 F 01/17/18 05:44 Pulse Rate 78 01/17/18 05:44 Respiratory Rate 20 01/17/18 05:44 Blood Pressure 123/71 01/17/18 05:44 O2 Sat by Pulse Oximetry (%) 100 01/16/18 20:36 Constitutional: Yes: Well Nourished, No Distress, Calm, Obese Cardiovascular: Yes: Regular Rate and Rhythm Respiratory: Yes: Regular Gastrointestinal: Yes: Normal Bowel Sounds, Soft, Abdomen, Obese Musculoskeletal: Yes: WNL Extremities: Yes: WNL Edema: No Peripheral Pulses WNL: Yes Neurological: Yes: Alert, Oriented Psychiatric: Yes: Alert, Oriented Labs: CBC, BMP 01/17/18 06:15 01/17/18 06:15 INR, PTT INR 0.93 (0.83-1.09) 01/16/18 15:11 Problem List - Problems (1) Acute systolic heart failure, ACC/AHA stage C Assessment/Plan: Continue ASA 81 qd -increase Lipitor 20 qhs -Zetia 10 qd -losartan 50 qd -increase Toprol XL 50 qd -F/U with cardiology outpatient Code(s): I50.21 - ACUTE SYSTOLIC (CONGESTIVE) HEART FAILURE (2) Chest pain Assessment/Plan: -ruled out for MS -Troponins and BNP unremarkable -Seen by Cardiology -No events on tele Code(s): R07.9 - CHEST PAIN, UNSPECIFIED Qualifiers: Chest pain type: precordial pain Qualified Code(s): R07.2 - Precordial pain (3) Morbid obesity with BMI of 45.0-49.9, adult Code(s): E66.01 - MORBID (SEVERE) OBESITY DUE TO EXCESS CALORIES; Z68.42 - BODY MASS INDEX (BMI) 45.0-49.9, ADULT (4) T2DM (type 2 diabetes mellitus) Assessment/Plan: -A1c at 5.6 -Encouraged to continue lifestyle modification -July d/c Sukumart and trvinicio -Consider Jardiance if needed -F/U with PMD/Endocrinology outpatient Code(s): E11.9 - TYPE 2 DIABETES MELLITUS WITHOUT COMPLICATIONS Qualifiers: 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
[2018-01-17] MEDS ORDERED: ATORVASTATIN CA 20 MG TABLET (FP) PO SCH (12:01)
[2018-01-17] MEDS ORDERED: SPIRONOLACTONE 25 MG TABLET (FP) PO SCH (12:45)
[2018-01-17] MEDS: ZONISAMIDE 100 MG CAPSULE PO SCH (13:03)
[2018-01-17 13:17] VITALS: BP 109/73; PULSE 70; TEMP 98.2
== END 2018-01-17 14:29 | disposition home or self-care (01) ==
LOC: JER 13:24 → JERBED 17:30 → J4W 19:30
PROVIDERS: ADMIT Internal Medicine; ATTEND Internal Medicine
DX: I11.0 Hypertensive heart disease with heart failure (principal); I50.21 Acute systolic (congestive) heart failure; R07.89 Other chest pain; I49.9 Cardiac arrhythmia, unspecified; I49.3 Ventricular premature depolarization; I42.8 Other cardiomyopathies; E78.5 Hyperlipidemia, unspecified; E11.9 Type 2 diabetes mellitus without complications; E03.9 Hypothyroidism, unspecified; E87.8 Other disorders of electrolyte and fluid balance, not elsewhere classified; J45.909 Unspecified asthma, uncomplicated; G40.909 Epilepsy, unspecified, not intractable, without status epilepticus; R00.2 Palpitations; E66.01 Morbid (severe) obesity due to excess calories; Z68.42 Body mass index [BMI] 45.0-49.9, adult; Z79.82 Long term (current) use of aspirin; Z79.84 Long term (current) use of oral hypoglycemic drugs
CPT/HCPCS: 36415; 71045-TC-FY; 80053; 80061; 81003; 81015; 82550; 82553; 82962; 83036; 83721; 83735; 83880; 84443; 84484; 85025; 85610; 93005; 93010; 93306-TC; 99284-25; G0378

== ENCOUNTER 2018-02-13 05:26 | Inpatient (IN) | payer OTHER ==
[2018-02-11 16:12] VITALS: BMI 49.3
--- NOTE | 2018-02-13 03:05 | HP ---
History & Physical Update - History History: No Change - Physical Physical: No Change - Assessment Assessment: No Change - Plan Plan: No Change (No change in HP on 02/11/18)
[~2018-02-13 05:26] MED LIST: ACETAMINOPHEN 325 MG TABLET (FP) PO PRN
[2018-02-13] MEDS ORDERED: MIDAZOLAM HCL 2 MG/2 ML SINGLE DOSE VIAL ONE ×4 (09:31→10:51)
[2018-02-13] MEDS ORDERED: DEXAMETHASONE SOD PHOSPHATE 4 MG/1 ML VIAL ONE (09:55)
[2018-02-13] MEDS ORDERED: SUCCINYLCHOLINE CHLORIDE 200 MG/10 ML VIAL ONE (09:56)
[2018-02-13] MEDS ORDERED: ROCURONIUM BROMIDE 50 MG/5 ML VIAL ONE (09:56)
[2018-02-13] MEDS ORDERED: PROPOFOL 20 ML ONE (09:57)
[2018-02-13] MEDS ORDERED: NEOSTIGMINE METHYLSULFATE 0.5 MG/1 ML - 10 ML MDV ONE (10:22)
[2018-02-13] MEDS ORDERED: ONDANSETRON 4 MG/2 ML VIAL ONE (10:26)
--- NOTE | 2018-02-13 10:51 | OP ---
Operative Note - Note: Operative Date: 02/13/18 Pre-Operative Diagnosis: Endometrial polyp. Abnormal Uterine bleeding Operation: Hysteroscopic Myomectomy. Suction DC Findings: large endometrial polyp Post-Operative Diagnosis: Same as Pre-op Surgeon: Cynthia Avelar Anesthesiologist/[employer] SALESMAN: Zeyad Recinos Anesthesia: General Estimated Blood Loss (mls): 40 Operative Report Dictated: Yes
[2018-02-13] MEDS ORDERED: ONDANSETRON 4 MG/2 ML VIAL IVPUSH PRN (11:06)
[2018-02-13] MEDS ORDERED: MIDAZOLAM HCL 2 MG/2 ML SINGLE DOSE VIAL IVPUSH ONE (11:07)
[2018-02-13] MEDS ORDERED: LACTATED RINGERS SOLUTION 1,000 ML IV SCH (11:15)
[2018-02-13] MEDS ORDERED: levETIRAcetam 500 MG/5 ML INJECTION VIAL IVPB STA (11:21)
[2018-02-13] MEDS ORDERED: LORazepam 2 MG/ML SDV VIAL IVPUSH PRN (11:25)
--- NOTE | 2018-02-13 14:06 | CON.NEURO ---
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 Cardio/Vascular: Yes: CHF, HTN, Hyperlipdemia ...LMP: 01/28/18 ...LMP Comment: heavy x 2 weeks Endocrine: Yes: Diabetes Mellitus - Past Surgical History Past Surgical History: Yes: Hernia Repair, Tonsillectomy, Tubal Ligation - Alcohol/Substance Use Hx Alcohol Use: No - Smoking History Smoking history: Never smoked Have you smoked in the past 12 months: No - Social History ADL: Independent Home Medications - Allergies Allergies/Adverse Reactions: Allergies Allergy/AdvReac Type Severity Reaction Status Date / Time celecoxib [From Celebrex] Allergy Verified 02/13/18 09:13 lamotrigine [From Lamictal] Allergy Verified 02/13/18 09:13 metoclopramide Allergy Verified 02/13/18 09:13 [From Metozolv ODT] tramadol Allergy Verified 02/13/18 09:13 - Home Medications Home Medications: Ambulatory Orders Aspirin 81 mg PO DAILY 01/16/18 Ezetimibe [Zetia] 10 mg PO DAILY 01/16/18 Levothyroxine [Synthroid -] 150 mcg PO DAILY 01/16/18 Losartan Potassium 50 mg PO DAILY 01/16/18 Mirabegron [Myrbetriq] 25 mg PO DAILY 01/16/18 Multivitamin [Daily Multiple Vitamin] 1 each PO DAILY 01/16/18 Zonisamide [Zonegran] 100 mg PO BID 01/16/18 levETIRAcetam [Keppra -] 750 mg PO BID 01/16/18 Metoprolol Succinate [Toprol XL -] 50 mg PO DAILY #30 tab.sr.24h 01/17/18 Oxcarbazepine [Trileptal] 300 mg PO HS #30 tab 01/17/18 Spironolactone [Aldactone -] 25 mg PO DAILY #30 tablet 01/17/18 Atorvastatin Ca [Lipitor] 10 mg PO HS 02/11/18 Budesonide/Formeterol Fumarate [SYMBICORT 160/4.5mcg -] 1 inh IH PRN 02/11/18 Cyanocobalamin Vit B-12 Inj. [Redisol] 1,000 mcg IM WEEKLY 02/11/18 Ergocalciferol (Vitamin D2) [Vitamin D2] 50,000 unit PO WEEKLY 02/11/18 Physical Exam-Neuro Vital Signs: Vital Signs Temperature 97.4 F L 02/13/18 10:47 Pulse Rate 61 02/13/18 13:00 Respiratory Rate 18 02/13/18 13:00 Blood Pressure 109/65 02/13/18 13:00 O2 Sat by Pulse Oximetry (%) 100 02/13/18 13:00 Assessment/Plan cc Breakthrough seizure HPI 47 year old female history of DM,HTN, Non ischemic cardiomyopathy , CHF. She has history of epilepsy , and on keppra 750 mg bid and zonegran 200 mg po qhs. Patient has fibroid surgery done , endoscopically. She took her aed this morning. she did have one small seizure ( as patient describes as petit mal) . She has eye twitching and face twisting and no generalized tonic clonic activity , she was given extra kepra of 1500 mg iv once. patient is now woke up. As per patient she has several video - eeg monitoring done and but never had seizure detected before. She feels better, she did have brain imaging and eeg done before. As per patient brain imaging were normal before. She denies any fever , headhace . She did not have any tongue bite or incontinence. PMH as above Past Surgical History: Yes: Hernia Repair, Tonsillectomy, Tubal Ligation Personal History Never smoked - Allergies Allergies/Adverse Reactions: Allergies Allergy/AdvReac Type Severity Reaction Status Date / Time lamotrigine [From Lamictal] Allergy Verified 01/16/18 13:34 Home Medications: Aspirin 81 mg PO DAILY 01/16/18 Atorvastatin Ca [Lipitor] 10 mg PO HS 01/16/18 Docusate Sodium [Colace] 100 mg PO DAILY 01/16/18 Ezetimibe [Zetia] 10 mg PO DAILY 01/16/18 Furosemide 40 mg PO ASDIR 01/16/18 Levothyroxine [Synthroid -] 150 mcg PO DAILY 01/16/18 Losartan Potassium 50 mg PO DAILY 01/16/18 Mirabegron [Myrbetriq] 25 mg PO DAILY 01/16/18 Multivitamin [Daily Multiple Vitamin] 1 each PO DAILY 01/16/18 Omeprazole 20 mg PO DAILY 01/16/18 Oxcarbazepine [Trileptal] 300 mg PO BID 01/16/18 Sitagliptin Phos/Metformin HCl [Janumet 50-500 mg Tablet] 1 each PO DAILY Trulicity 01/16/18 Zonisamide [Zonegran] 100 mg PO BID 01/16/18 levETIRAcetam [Keppra -] 750 mg PO BID 01/16/18 ROS , family history reviewed in chart NEUROLOGICAL EXAMINATION alert oriented x 3, speech is normal, no neck stiffness EOMI, pupils reactive, no face asymmetry moving all extremity 5/5 sensation is normal No brain imaging available Assessment/pLAN 48 year old female history of epilepsy, came for removal of uterine fibroid ( endoscopically) , during post op she had a breakthrough seizure and was given iv versed, and she was given extra keppra 1500 mg iv once Now she is back to normal self and wishes to go home Plan: given she has extensive work up in past , there is no need for imaging or eeg at thsi time. She was given extra keppra. She is advice to take keppra 750 mg po tid, and follow up with neurologist - I provided her my office no, interim, if she has any question, she can call my office. - electrolyte can be checked and she can be discharged home. Thanking you so much Herb
[2018-02-13 14:41] LABS: ALBUMIN 2.9 g/dl (3.4-5.0); ALK PHOS 79 U/L (45-117); ANION GAP 6 MMOL/L (8-16); BILIRUBIN,TOTAL 0.2 mg/dL (0.2-1); BLOOD UREA NITROGEN 9 mg/dL (7-18); CALCIUM 8.2 mg/dL (8.5-10.1); CHLORIDE 107 mmol/L (98-107); CO2 26 mmol/L (21-32); CREATININE 0.7 mg/dL (0.55-1.3); GLUCOSE,RANDOM 117 mg/dL (74-106); MAGNESIUM 1.7 mg/dL (1.8-2.4); POTASSIUM 4.5 mmol/L (3.5-5.1); SGOT/AST 16 U/L (15-37); SGPT/ALT 12 U/L (13-61); SODIUM 139 mmol/L (136-145); TOT PROT 6.9 g/dl (6.4-8.2)
[2018-02-13 15:05] VITALS: TEMP 97.5
[2018-02-13 16:50] VITALS: PULSE 84
[2018-02-13 16:52] VITALS: BP 112/66
--- NOTE | 2018-02-14 16:42 | PATH ---
Surgical Pathology Report Patient Name: RANCHO HANDY [facility]. Rec. #: [id number] /Age/Gender: 1970 (Age: 48) / F Account: [id number] Location: [facility] Taken: 02/13/2018 Received: 02/13/2018 Reported: 02/14/2018 Physicians: Cynthia Avelar M.D. Specimen(s) Received UTERINE CONTENTS Clinical History Endometrial polyp Final Diagnosis CONTENTS OF UTERUS, SUCTION DILATION AND CURETTAGE: FRAGMENTS OF ENDOMETRIAL POLYP AND SCANT CERVICAL TISSUE. Electronically Signed Ximena Lerma M.D. Gross Description Received in formalin labeled "contents of uterus," is a 3 g, 3.3 x 3.0 x 0.3 cm aggregate of lord-pink, firm to rubbery portions of tissue admixed with blood clot. The formalin is filtered and the specimen is entirely submitted in 2 cassettes. /02/13/2018 saudi02/13/2018
== END 2018-02-13 12:30 | disposition home or self-care (01) | DRG 744 ==
LOC: JASU-SURG 05:26 → JSAMEDAYSX 11:18
PROVIDERS: ADMIT Obstetrics & Gynecology; ATTEND Obstetrics & Gynecology
PROC: 0UB98ZX Excision of Uterus, Via Natural or Artificial Opening Endoscopic, Diagnostic (ICD-10-PCS; principal; 2018-02-13 10:30)
PROC: 0UDB8ZX Extraction of Endometrium, Via Natural or Artificial Opening Endoscopic, Diagnostic (ICD-10-PCS; 2018-02-13 10:30)
DX: N93.8 Other specified abnormal uterine and vaginal bleeding (principal); I42.8 Other cardiomyopathies; G97.82 Other postprocedural complications and disorders of nervous system; Z68.42 Body mass index [BMI] 45.0-49.9, adult; N84.0 Polyp of corpus uteri; E11.9 Type 2 diabetes mellitus without complications; I50.9 Heart failure, unspecified; I10 Essential (primary) hypertension; G40.909 Epilepsy, unspecified, not intractable, without status epilepticus; E78.5 Hyperlipidemia, unspecified; E66.01 Morbid (severe) obesity due to excess calories
CPT/HCPCS: 36415; 80053; 83735; 84702; 85025; 86850; 86900; 86901; 88305-TC; 94760

== ENCOUNTER 2022-12-24 15:30 | Emergency (ER) | payer OTHER ==
[2022-12-24 16:47] VITALS: RESP 18; TEMP 98.2; BMI 51.7
[2022-12-24] MEDS ORDERED: DEXAMETHASONE SOD PHOSPHATE 10 MG/1 ML VIAL IVPUSH ONE (16:48)
[2022-12-24 17:09] LABS: BASO % 0.7 % (0-2.0); EOS % 1.7 % (0-4.5); HEMATOCRIT 36.3 % (32.4-45.2); HEMOGLOBIN 11.8 GM/dL (10.7-15.3); LYMPH % 32.2 % (8-40); MCH 26.1 pg (25.7-33.7); MCHC 32.5 g/dl (32.0-36.0); MEAN CELL VOLUME 80.3 fl (80-96); MEAN PLT VOLUME 10.1 fl (7.5-11.1); NEUT % 58.4 % (42.8-82.8); PLATELET COUNT 107 10^3/uL (134-434); RBC 4.52 M/mm3 (3.60-5.2); RDW 14.9 % (11.6-15.6); WHITE BLOOD COUNT 7.2 K/mm3 (4.0-10.0)
[2022-12-24] MEDS ORDERED: DEXAMETHASONE SOD PHOSPHATE 10 MG/1 ML VIAL ONE (17:14)
[2022-12-24 17:16] LABS: INR 1.01 (0.83-1.09); PROTHROMBIN TIME (PATIENT) 11.7 SEC (9.7-13.0)
[2022-12-24 17:19] LABS: ACTIVATED PTT 32.9 SECONDS (25.2-36.5)
[2022-12-24 17:40] LABS: POTASSIUM 4.3 mmol/L (3.5-5.1)
[2022-12-24 17:42] LABS: CALCIUM 9.3 mg/dL (8.5-10.1)
[2022-12-24 17:43] LABS: ALBUMIN 3.9 g/dl (3.4-5.0); BLOOD UREA NITROGEN 6.7 mg/dL (7-18)
[2022-12-24 17:45] LABS: ERYTHROCYTE SEDIMENTATION RATE 55 mm/hr (0-30)
[2022-12-24 17:48] LABS: BILIRUBIN,TOTAL 0.3 mg/dL (0.2-1); TOT PROT 8.1 g/dl (6.4-8.2)
[2022-12-24] MEDS ORDERED: ACETAMINOPHEN 1000 MG/100 ML BAG IVPB ONE (18:47)
[2022-12-24] MEDS ORDERED: ACETAMINOPHEN INJECTION 100 ML IVPB ONE (19:00)
[2022-12-24 21:59] VITALS: BP 133/85; PULSE 90
== END 2022-12-24 22:25 | disposition short-term general hospital (02) ==
LOC: JER 15:30
PROC: 3E033NZ Introduction of Analgesics, Hypnotics, Sedatives into Peripheral Vein, Percutaneous Approach (ICD-10-PCS; principal; 2022-12-24)
PROC: 3E033GC Introduction of Other Therapeutic Substance into Peripheral Vein, Percutaneous Approach (ICD-10-PCS; 2022-12-24)
DX: M54.50 Low back pain, unspecified (principal); R53.1 Weakness; R20.2 Paresthesia of skin; R15.9 Full incontinence of feces; R32 Unspecified urinary incontinence
CPT/HCPCS: 36415; 71045-TC-FY; 80053; 85025; 85610; 85651; 85730; 86850; 86900; 86901; 93005; 93010; 99285-25; J1100